=== PATIENT | female | born 1930 | race Caucasian/White ===

== ENCOUNTER 2017-11-06 17:50 | Emergency (ER) | payer MEDICARE, OTHER ==
--- NOTE | 2017-11-06 17:55 | ED Physician Documentation ---
General Adult - HISTORIAN Historian: other (EMS) - HPI Stated Complaint: fall Chief Complaint: General Adult Additional Information: Resident denisha Maldonado fell from her WC and hit the back of her head on the floor. No LOC. Daily aspirin. - PAST HX Past History: hypertension Other History: diabetes Type 2, other (demenia; chronic a fib) - SOCIAL HX Smoking History: non-smoker - FAMILY HX Family History: No (no significant HX) - REVIEWED ASSESSMENTS Nursing Assessment Reviewed: Yes Vitals Reviewed: Yes <RAHEEL RUVALCABA - Last Filed: 11/06/17 18:59> - ROS CONST: recent illness (UTI --COMPLETE EVALUATION FOR [facility]-NONE FOUND--PT HAD UTI BUT LAB REVEALS APPARENT COMPLETE RESOLUTION) - VITAL SIGNS Vital Signs: Vital Signs Temp Pulse Resp BP Pulse Ox 97.4 F L 92 H 16 145/78 92 11/06/17 17:50 11/06/17 17:50 11/06/17 17:50 11/06/17 17:50 11/06/17 17:50 <Alfredo Do - Last Filed: 11/06/17 20:48> - PAST HX Allergies/Adverse Reactions: Allergies Allergy/AdvReac Type Severity Reaction Status Date / Time amoxicillin Allergy Verified 11/06/17 18:02 ciprofloxacin Allergy Verified 11/06/17 18:02 codeine Allergy Verified 11/06/17 18:02 meperidine Allergy Verified 11/06/17 18:02 Sulfa (Sulfonamide Allergy Verified 11/06/17 18:02 Antibiotics) Home Medications: Ambulatory Orders Medication Instructions Recorded Ascorbic Acid [Vitamin C] 1 tab PO DAILY 11/06/17 Aspirin [Aspir-Low] 1 tab PO DAILY 11/06/17 Atorvastatin Calcium [Atorvastatin 1 tab PO DAILY 11/06/17 Calcium] Clonidine HCl [Clonidine HCl ER] 1 tab PO BID 11/06/17 Diltiazem HCl [Diltiazem ER] 1 tab PO DAILY 11/06/17 Docusate Sodium [Colace] 1 tab PO BID 11/06/17 QUEtiapine FUMARATE [Seroquel] 1 tab PO BID 11/06/17 traMADol HCL [Ultram] 1 tab PO PRN PRN 11/06/17 Progress - Progress Progress: Patient Study Name: [facility] Date: November 06, 2017 6:07:35 PM CDT Modality Type: CT\SR Gender: F Description: CT BRAIN W/O CONTRAST : [birth year] Institution: [facility] Physician: RAHEEL RUVALCABA - CT head without contrast HISTORY Fall, head injury. TECHNIQUE Images through the brain were obtained without contrast. FINDINGS No prior examination is available for comparison. There is no mass, midline shift, obstructive hydrocephalous or acute intracranial hemorrhage. The ventricles and cortical sulci are enlarged, consistent with atrophy. Lucency in the periventricular white matter indicates microvascular ischemic change. No extra-axial fluid collection is identified. Scalp hematoma is noted in the left posterior parietal region. IMPRESSION Chronic and age-related changes. No acute intracranial process. Electronically signed on November 06, 2017 6:41:29 PM CDT by: Gerard Billingsley to Dr. Do <RAHEEL RUVALCABA - Last Filed: 11/06/17 18:59> ED Results Lab/Radiology - Orders Orders: ED Orders Category Date Time Status Place IV Lock 1T Care 11/06/17 17:[address] BRAIN W/O CONTRAST Stat Exams 11/06/17 Ordered CBC/PLATELET/DIFF Routine Lab 11/06/17 Ordered CMP Routine Lab 11/06/17 Ordered PT-INR Routine Lab 11/06/17 Ordered URINALYSIS Routine Lab 11/06/17 Ordered <RAHEEL RUVALCABA - Last Filed: 11/06/17 18:59> - Lab Results Lab Results: Lab Results 11/06/17 11/06/17 11/06/17 19:30 17:50 17:50 WBC Pending RBC 4.37 M/ul M/ul (3.90-5.20) Hgb 14.1 g/dL g/dL (12.0-16.0) Hct 43.2 % % (34.5-46.5) MCV 99.0 fl fl (80.0-100.0) MCH 32.2 pg pg (28.0-34.0) MCHC 32.6 g/dL g/dL (30.0-36.0) RDW 13.9 % % (11.3-14.3) Plt Count 131 K/mm3 K/mm3 (130-400) PT 13.3 Seconds H Seconds (9.4-11.6) INR 1.27 H (0.9-1.2) Sodium 140 mmol/L mmol/L (136-145) Potassium 3.7 mmol/L mmol/L (3.5-5.1) Chloride 105 mmol/L mmol/L (98-107) Carbon Dioxide 28 mmol/L mmol/L (22-30) BUN 15 mg/dL mg/dL (7-17) Creatinine 0.60 mg/dL mg/dL (0.52-1.04) Estimated Creat Clear 49 Est GFR ( Amer) > 60 (60 - ) Est GFR (Non-Af Amer) > 60 (60 - ) Glucose 164 mg/dL H mg/dL (74-106) Calcium 10.1 mg/dL mg/dL (8.4-10.2) Total Bilirubin 0.5 mg/dL mg/dL (0.2-1.3) AST 41 U/L U/L (15-46) ALT 32 U/L U/L (13-69) Alkaline Phosphatase 66 U/L U/L (38-126) Total Protein 6.9 g/dL g/dL (6.3-8.2) Albumin 3.9 g/dL g/dL (3.5-5.0) - Orders Orders: ED Orders Category Date Time Status Place IV Lock 1T Care 11/06/17 17:[address] BRAIN W/O CONTRAST Stat Exams 11/06/17 Taken CBC/PLATELET/DIFF Routine Lab 11/06/17 17:50 Results CMP Routine Lab 11/06/17 17:50 Completed PT-INR Routine Lab 11/06/17 19:30 Completed URINALYSIS Routine Lab 11/06/17 Ordered <Alfredo Do - Last Filed: 11/06/17 20:48> General Adult Physical Exam - PHYSICAL EXAM GENERAL APPEARANCE: mild distress (restless) EENT: ENT inspection normal NECK: normal inspection, supple RESPIRATORY: chest non-tender, breath sounds normal CVS: heart sounds normal ABDOMEN: soft, normal bowel sounds, no distension, non-tender BACK: other (portions of back visualized and skin intact. she does not cooperate with exam and refuses to roll or tusit up) SKIN: warm/dry, normal color EXTREMITIES: normal range of motion, no evidence of injury NEURO: CN's nml as tested, motor nml, sensation nml (Hematoma left occipitoparietal area, 4 cm elevation, 6 cm in length, 2 cm wide, tender. Abrasions, but no lac.) <RAHEEL RUVALCABA - Last Filed: 11/06/17 18:59> Discharge <RAHEEL RUVALCABA - Last Filed: 11/06/17 18:59> Decision to Admit: NO Decision Time: 20:47 <Alfredo Do - Last Filed: 11/06/17 20:48> Clincal Impression: fall w/mild concussion, recenbt complete [facility] Referrals: Emery Roberts MD [Primary Care Provider] - 2 Days Condition: Good Disposition: 01 HOME, SELF-CARE
[2017-11-06 18:36] LABS: MEAN CORPUSCULAR HEMOGLOBIN 32.2 pg (28.0-34.0)
[2017-11-06 18:42] LABS: eGFR (African) > 60; eGFR (Non-African) > 60
[2017-11-06 21:13] VITALS: BP 186/98
[2017-11-07 06:04] LABS: APPEARANCE,URINE CLOUDY (CLEAR); COLOR,URINE YELLOW (YELLOW); OCCULT BLOOD,URINE TR (NEGATIVE); UROBILINOGEN URINE 0.2 Eu (0.2-1.0)
[2017-11-07 08:05] LABS: MONOCYTES % 6 % (0-11); SEGMENTED NEUTROPHILS % 67 % (39-79)
--- NOTE | 2017-11-07 10:02 | Diagnostic Imaging Report ---
RAHEEL RUVALCABA [facility] [address] [facility] [address] [place], [place]. [address] Report Submission Date: November 06, 2017 6:41:29 PM CDT Patient Study Name: [facility]DESTO [facility] Date: November 06, 2017 6:07:35 PM CDT Modality Type: CT\SR Gender: F Description: CT BRAIN W/O CONTRAST : [birth year] Institution: [facility] Physician: RAHEEL RUVALCABA CT head without contrast HISTORY Fall, head injury. TECHNIQUE Images through the brain were obtained without contrast. FINDINGS No prior examination is available for comparison. There is no mass, midline shift, obstructive hydrocephalous or acute intracranial hemorrhage. The ventricles and cortical sulci are enlarged, consistent with atrophy. Lucency in the periventricular white matter indicates microvascular ischemic change. No extra-axial fluid collection is identified. Scalp hematoma is noted in the left posterior parietal region. IMPRESSION Chronic and age-related changes. No acute intracranial process. Electronically signed on November 06, 2017 6:41:29 PM CDT by: Gerard MCBRIDE
== END 2017-11-06 21:10 | disposition home or self-care (01) ==
LOC: ED 17:50
DX: S06.0X0A Concussion without loss of consciousness, initial encounter (principal); W19.XXXA Unspecified fall, initial encounter; Y92.199 Unspecified place in other specified residential institution as the place of occurrence of the external cause; Y93.9 Activity, unspecified; Y99.9 Unspecified external cause status
CPT/HCPCS: 51701; 70450; 80053; 81002; 85025; 85610; 99284; S1016

== ENCOUNTER 2017-11-16 07:39 | Inpatient (IN) | payer MEDICARE, OTHER ==
[2017-11-16] MEDS ORDERED: 0.9 % SODIUM CHLORIDE 500 ML IV ONE (07:42)
[2017-11-16 08:12] LABS: BASOPHILS % 0.2 (0.0-1.5); EOSINOPHILS % 0.2 % (0.0-6.8); MEAN CORPUSCULAR HEMOGLOBIN 31.7 pg (28.0-34.0); MEAN CORPUSCULAR VOLUME 101.8 fl (80.0-100.0); MONOCYTES % 3.5 % (0.0-11.0); NEUTROPHILS # 8.7 # k/uL (1.4-7.7)
[2017-11-16 08:23] LABS: eGFR (African) 34; eGFR (Non-African) 28
--- NOTE | 2017-11-16 08:32 | Diagnostic Imaging Report ---
NONI KHANNA [facility] [address] [facility] [address] [address] Report Submission Date: Nov 16, 2017 8:29:34 AM CDT Patient Study Name: [facility]DESTO [facility]ITAL Date: Nov 16, 2017 8:06:42 AM CDT Modality Type: DX Gender: F Description: CHEST : [birth year] Institution: [facility] Physician: NONI KHANNA Chest, AP portable History: Dyspnea, shortness of breath Findings: No prior examination is available for comparison. Sternal wires indicate prior cardiac surgery. Mild left lower lobe infiltrate is present. There is no pneumothorax or pleural effusion. The heart is enlarged. Pulmonary vascularity is normal. There is calcification in the thoracic aorta. Impression: Cardiomegaly. Mild left lower lobe infiltrate. Aortic atherosclerosis. Electronically signed on Nov 16, 2017 8:29:34 AM CDT by: Gerard MCBRIDE
--- NOTE | 2017-11-16 08:40 | ED Physician Documentation ---
General Adult - HISTORIAN Historian: patient - HPI Stated Complaint: fever, tachycardia, dehydration Chief Complaint: General Adult Onset: days ago Timing: still present Severity: moderate Further Comments: yes (Pt is an 87 yo female who presents with tachycardia, recent dx pneunonia and UTI, who appears dehydrated. Pt's HR on presentation in 140's; Pt tachypneic with RR 38. Pt is hypertensive. She has not been getting her daily meds because she has appeared lethargic and not able to swallow well.) - ROS CONST: weakness CVS/RESP: shortness of breath GI/: none MS/SKIN/LYMPH: none NEURO/PSYCH: other (lethargic) - PAST HX Past History: other (afib, anxiety, demenita, DM, HTN) Allergies/Adverse Reactions: Allergies Allergy/AdvReac Type Severity Reaction Status Date / Time amoxicillin Allergy Verified 11/16/17 08:56 ciprofloxacin Allergy Verified 11/16/17 08:56 codeine Allergy Verified 11/16/17 08:56 meperidine Allergy Verified 11/16/17 08:56 Sulfa (Sulfonamide Allergy Verified 11/16/17 08:56 Antibiotics) Home Medications: Ambulatory Orders Medication Instructions Recorded Ascorbic Acid [Vitamin C] 1 tab PO DAILY 11/06/17 Aspirin [Aspir-Low] 1 tab PO DAILY 11/06/17 Atorvastatin Calcium [Atorvastatin 1 tab PO DAILY 11/06/17 Calcium] Clonidine HCl [Clonidine HCl ER] 1 tab PO BID 11/06/17 Diltiazem HCl [Diltiazem ER] 1 tab PO DAILY 11/06/17 Docusate Sodium [Colace] 1 tab PO BID 11/06/17 QUEtiapine FUMARATE [Seroquel] 1 tab PO BID 11/06/17 traMADol HCL [Ultram] 1 tab PO PRN PRN 11/06/17 Calcium Carbonate/Vitamin D3 1 tab PO DAILY 11/16/17 [Calcium 600 with Vit D Chew Tb] Cyanocobalamin (Vitamin B-12) 1 tab PO DAILY 11/16/17 [Vitamin B-12] Famotidine [Pepcid] 20 mg PO DAILY 11/16/17 LORazepam [Ativan] 0.5 mg PO TID 11/16/17 Pyridoxine HCl (Vitamin B6) 2 tab PO DAILY 11/16/17 [Vitamin B-6] Valsartan [Valsartan] 160 mg PO DAILY 11/16/17 - SOCIAL HX Smoking History: non-smoker - FAMILY HX Family History: No - VITAL SIGNS Vital Signs: Vital Signs Temp Pulse Resp BP Pulse Ox 186/98 11/06/17 21:10 - REVIEWED ASSESSMENTS Nursing Assessment Reviewed: Yes Vitals Reviewed: Yes Progress - Progress Progress: NS 500 cc IVF Pt tachypneic but SpO2 94 % 2 L NC Diltiazem 15 mg IV Ativan 0.5 mg IV Lasix 20 mg IV bp, hr, improved cxr: Cardiomegaly. Mild left lower lobe infiltrate. Aortic atherosclerosis. Pt has elevated Troponin 1.01; elevated BNP; elevated sodium; and is dehydrated Pt is DNR. D/w family possibility of sending pt to [place], but family does not want aggressive measures. Will continue Rocephin, add Azithromycin, continue gentle hydration. Diltiazem q 6 h prn HTN, tachycardia. May consider Lasix (which may improve hypernatremia ). Admit to [facility]. - EKG/XRAY/CT EKG: rhythm (sinus tachycardia, JY=317; LVH by voltage; non-specific ST & T wave changes.) ED Results Lab/Radiology - Lab Results Lab Results: Lab Results 11/16/17 11/16/17 11/16/17 08:00 08:00 08:00 WBC 9.94 K/ul K/ul (4.00-12.00) RBC 5.50 M/ul H M/ul (3.90-5.20) Hgb 17.4 g/dL H g/dL (12.0-16.0) Hct 55.9 % H % (34.5-46.5) MCV 101.8 fl H fl (80.0-100.0) MCH 31.7 pg pg (28.0-34.0) MCHC 31.2 g/dL g/dL (30.0-36.0) RDW 13.7 % % (11.3-14.3) Plt Count 235 K/mm3 K/mm3 (130-400) Neut % (Auto) 87.4 % H % (39.0-79.0) Lymph % (Auto) 6.5 % L % (16.0-50.0) [place] % (Auto) 3.5 % % (0.0-11.0) Eos % (Auto) 0.2 % % (0.0-6.8) Baso % (Auto) 0.2 (0.0-1.5) Neut # (Auto) 8.7 # k/uL H # k/uL (1.4-7.7) Lymph # (Auto) 0.7 # k/uL # k/uL (0.6-4.0) [place] # (Auto) 0.4 # k/uL # k/uL (0.0-0.9) Eos # (Auto) 0.0 # k/uL # k/uL (0.0-0.6) Baso # (Auto) 0.0 # k/uL # k/uL (0.0-0.5) Reactive Lymphs % 2.2 % % (0.0-5.0) Reactive Lymphs # 0.2 # k/uL # k/uL (0.0-0.8) Sodium 159 mmol/L H mmol/L (136-145) Potassium 4.3 mmol/L mmol/L (3.5-5.1) Chloride 119 mmol/L H mmol/L (98-107) Carbon Dioxide 20 mmol/L L mmol/L (22-30) BUN 60 mg/dL H mg/dL (7-17) Creatinine 1.80 mg/dL H mg/dL (0.52-1.04) Est GFR ( Amer) 34 L (60 - ) Est GFR (Non-Af Amer) 28 L (60 - ) Glucose 187 mg/dL H mg/dL (74-106) Calcium 11.3 mg/dL H mg/dL (8.4-10.2) Total Bilirubin 1.1 mg/dL mg/dL (0.2-1.3) AST 138 U/L H U/L (15-46) ALT 67 U/L U/L (13-69) Alkaline Phosphatase 116 U/L U/L (38-126) Creatine Kinase 100 U/L U/L (30-135) CK-MB (CK-2) 3.2 ng/mL ng/mL (0.0-5.6) Troponin I 1.01 ng/mL H ng/mL (0.03-0.06) NT-Pro-B Natriuret Pep > 253019.0 pg/mL H pg/mL (15.0-450.0) Total Protein 7.8 g/dL g/dL (6.3-8.2) Albumin 4.1 g/dL g/dL (3.5-5.0) - Orders Orders: ED Orders Category Date Time Status Continuous EKG monitoring Q30M Care 11/16/17 07:43 Active Continuous Pulse Oximetry Q30M Care 11/16/17 07:[address] IV Lock 1T Care 11/16/17 07:[address] IV Lock 1T Care 11/16/17 07:43 Active CHEST 1VIEW [RAD] Stat Exams 11/16/17 Completed BLOOD CULTURE Stat Lab 11/16/17 Ordered CBC/PLATELET/DIFF Routine Lab 11/16/17 08:00 Completed CKMB Stat Lab 11/16/17 08:00 Completed CMP Routine Lab 11/16/17 08:00 Completed CREATINE KINASE Routine Lab 11/16/17 08:00 Completed NT-proBNP Stat Lab 11/16/17 08:00 Completed TROPONIN I (cTnI) Stat Lab 11/16/17 08:00 Completed 0.9 % Sodium Chloride [Normal Saline] 500 ml Med 11/16/17 07:42 Active IV NOW Oxygen Daily Oxygen 11/16/17 07:45 Ordered EKG WITH COMPARISON Stat Ther 11/16/17 07:43 Ordered General Adult Physical Exam - PHYSICAL EXAM GENERAL APPEARANCE: moderate distress (thin) EENT: dry mucous membranes NECK: normal inspection, supple RESPIRATORY: breath sounds normal, other (tachypneic) CVS: tachycardia ABDOMEN: soft, no organomegaly, normal bowel sounds BACK: normal inspection, no CVA tenderness SKIN: warm/dry, normal color EXTREMITIES: non-tender, no edema NEURO: motor nml, sensation nml, other (dementia) Discharge Clincal Impression: SOB, HTN, elevated troponin, elevated BNP, hypernatremia, pneumonia, recent UTI Referrals: Emery Roberts MD [Primary Care Provider] - 2 Days Condition: Fair Disposition: ADMITTED INPATIENT Decision to Admit: [id number] Decision Time: 11:21
[2017-11-16] MEDS ORDERED: DILTIAZEM HCL 25 MG/ 5ML VIAL IVP ONE (09:06)
[2017-11-16] MEDS ORDERED: LORazepam 2 MG/ML VIAL IVP ONE (09:32)
[2017-11-16] MEDS ORDERED: Lidocaine 1% 5ml(IM or SUTURE)(PAIN CLINIC) IJ ONE (09:35)
[2017-11-16] MEDS ORDERED: FUROSEMIDE 20 MG/2 ML VIAL IVP ONE (10:51)
[2017-11-16] MEDS ORDERED: AZITHROMYCIN 500 MG in 0.9 % SODIUM CHLORIDE 250 ML IV SCH (11:18)
[2017-11-16] MEDS ORDERED: AZITHROMYCIN 500 MG VIAL IV ONE (12:26)
[2017-11-16] MEDS ORDERED: 0.9 % SODIUM CHLORIDE 250 ML IV ONE (12:27)
[2017-11-16] MEDS ORDERED: KETOROLAC TROMETHAMINE 30 MG/1ML VIAL ONE (12:36)
[2017-11-16] MEDS ORDERED: KETOROLAC TROMETHAMINE 30 MG/1ML VIAL IVP ONE (12:39)
[2017-11-16] MEDS ORDERED: DILTIAZEM HCL IV ONE (12:40)
[2017-11-16] MEDS ORDERED: SODIUM CHLORIDE 0.9% IV ONE (12:40)
[2017-11-16] MEDS ORDERED: LORazepam 2 MG/ML VIAL IVP SCH (13:00)
--- NOTE | 2017-11-16 14:00 | History and Physical Report ---
History of Present Illnes - History of Present Illness Reason for Visit: Pneumonia, dehydration, sepsis History of Present Illness: 87 year old female presented to the ER from [facility] this morning after family noticed the patient seemed lethargic and was not alert or responsive. She had been being treated for a UTI for the last several days and was diagnosed with pneumonia yesterday. She had been on Nitrofuritonin for the UTI and was started on Rocephin daily yesterday for the pneumonia at the half-way. half-way staff reported to ER provider that the patient had not been eating or drinking much at all the last several days and had not been taking her oral medications because she was not alert enough to swallow. Family had requested she be evaluated in the ER for possible IV hydration. Upon arrival in the ER she was found to have a HR in the 140s, respirations in the 40s, and an elevated BP. Her troponin was elevated and her BNP was too high to measure. Her sodium was very elevated. She was found to be extremely dehydrated with an serum creatinine of 1.8 and BUN of 60. Because the patient is not alert and oriented the treatment options were discussed with her next of kin. Transfer to [place] with discussed with next of kin and it was agreed that they did not want to pursue aggressive treatment for her condition. They elect to have her admitted here for IV antibiotics and IV fluids. The patient was then transferred to the floor. At the time of this interview her 1 Daughter , granddaughter, and son are present. Her 2 Daughters are her surrogate decision makers. They note that they do not want aggressive treatment of the patient's condition. They specifically state they do not wish to have mechanical or pharmaceutical intervention if the patient's heart is to stop and they do not wish to have a breathing tube placed should she stop breathing. They state their main concern is that she is comfortable. They do wish to proceed with antibiotic treatment of the pneumonia, and would like to continue IV hydration at this time though they state they are aware Bonnie Echols may not respond to these treatments and they understand her likely course is one of progressive deterioration. - Past Medical History Cardiac: AFIB [employer] MANAGER: Dementia Renal/: UTI (diagnosed approximately 1 week ago, treated wtih abx in [facility]) - Past Surgical History Past Surgical History: Other (Unknown ) - Past Social History Smoke: No Alcohol: None Lives: Jail ([facility]) - Health Maintenance Health Maintenance: Influenza Vaccine (Per family current for this influenza season) Pneumonia Vaccine: No Resuscitation Status: Resusciation Status Resuscitation Status Do Not Resuscitate - Unable to Obtain History Unable to Obtain: Yes (Patient is non responsive. History is obtained though family and [facility] staff) Review of Systems - Review of Systems Constitutional: Deferred Eyes: Deferred ENT: Deferred Respiratory: Deferred Cardiovascular: Deferred Gastrointestinal: Deferred Genitourinary: Deferred Musculoskeletal: Deferred Skin: Deferred Neurological: Deferred Other: ROS not obtained due to patient being non-responsive at time of interview. - Medications/Allergies Allergies/Adverse Reactions: Allergies Allergy/AdvReac Type Severity Reaction Status Date / Time amoxicillin Allergy Verified 11/16/17 08:56 ciprofloxacin Allergy Verified 11/16/17 08:56 codeine Allergy Verified 11/16/17 08:56 meperidine Allergy Verified 11/16/17 08:56 Sulfa (Sulfonamide Allergy Verified 11/16/17 08:56 Antibiotics) Home Medications: Home Medications Calcium Carbonate/Vitamin D3 [Calcium 600 with Vit D Chew Tb] 1 tab PO DAILY 08/31 Cyanocobalamin (Vitamin B-12) [Vitamin B-12] 1 tab PO DAILY 11/16/17 Famotidine [Pepcid] 20 mg PO DAILY 11/16/17 LORazepam [Ativan] 0.5 mg PO TID 11/16/17 Pyridoxine HCl (Vitamin B6) [Vitamin B-6] 2 tab PO DAILY 11/16/17 Valsartan [Valsartan] 160 mg PO DAILY 11/16/17 Current Inpatient Medications: Current Inpatient Medications Diltiazem HCl (Cardizem) 15 mg IVP Q6H PRN PRN Reason: DIRECTED BY 'S ORDER Azithromycin 500 mg/ Sodium (Chloride) 250 mls @ 125 mls/hr IV Q24H JOSÉ MIGUEL Stop: 11/26/17 11:17 Last Admin: 11/16/17 12:55 Dose: 125 mls/hr Ceftriaxone Sodium 1 gm/ (Sodium Chloride) 100 mls @ 200 mls/hr IV Q24H JOSÉ MIGUEL Stop: 11/22/17 23:59 Sodium Chloride (Normal Saline) 1,000 mls @ 100 mls/hr IV Q10H JOSÉ MIGUEL Diltiazem HCl 15 mg/ Sodium (Chloride) 103 mls @ 10 mls/hr IV NOW ONE Stop: 11/17/17 01:09 Last Admin: 11/16/17 13:05 Dose: Not Given Lorazepam (Ativan) 0.5 mg IVP Q8 JOSÉ MIGUEL Exam - Exam Vital Signs: Vital Signs (72 hours) 11/16/17 13:24 Pulse Rate [ 90 Left Pulse ox] Respiratory 38 H Rate Blood Pressure 150/99 [Right Arm] O2 Sat by Pulse 97 Oximetry General: Moderate distress, Other (Patient is not alert and only response is a grimice when she is moved or with verbal stimulation in conjuction with physical stimulation (patting shoulder). She does not open her eyes during the entire exam, and is unable to squeeze my hand or machine maintenance her legs on command. ), Thin HEENT: Edentulous. No: Atraumatic (Hematoma on the back of head - from fall at NH last week per family), Mouth Mucous membr. moist/[place] (Very dry mucosa, with some discoloration of the soft palate - issues with dentures per family) Neck: No: Lymphadenopathy Lungs: Rales (very mild at bases) Cardiovascular: No murmurs, Tachycardia. No: Atrial Fib Abdomen: Soft, No tenderness. No: No hepatospenomegaly, Distended, Rigid Integumentary: Normal, [place], Warm, Dry Extremities: No edema, No tenderness/swelling Neurological: Generalized Weakness Psych/Mental Status: No: Mental status NL, Intact Judgment - Laboratory Results Laboratory Results: Laboratory Results - last 24 hr 11/16/17 11/16/17 11/16/17 08:00 08:00 08:00 WBC 9.94 RBC 5.50 H Hgb 17.4 H Hct 55.9 H MCV 101.8 H MCH 31.7 MCHC 31.2 RDW 13.7 Plt Count 235 Neut % (Auto) 87.4 H Lymph % (Auto) 6.5 L [place] % (Auto) 3.5 Eos % (Auto) 0.2 Baso % (Auto) 0.2 Neut # (Auto) 8.7 H Lymph # (Auto) 0.7 [place] # (Auto) 0.4 Eos # (Auto) 0.0 Baso # (Auto) 0.0 Reactive Lymphs % 2.2 Reactive Lymphs # 0.2 Sodium 159 H Potassium 4.3 Chloride 119 H Carbon Dioxide 20 L BUN 60 H Creatinine 1.80 H Est GFR ( Amer) 34 L Est GFR (Non-Af Amer) 28 L Glucose 187 H Calcium 11.3 H Total Bilirubin 1.1 AST 138 H ALT 67 Alkaline Phosphatase 116 Creatine Kinase 100 CK-MB (CK-2) 3.2 Troponin I 1.01 H NT-Pro-B Natriuret Pep > 45767.0 H Total Protein 7.8 Albumin 4.1 11/16/17 11/16/17 14:45 14:45 WBC RBC Hgb Hct MCV MCH MCHC RDW Plt Count Neut % (Auto) Lymph % (Auto) [place] % (Auto) Eos % (Auto) Baso % (Auto) Neut # (Auto) Lymph # (Auto) [place] # (Auto) Eos # (Auto) Baso # (Auto) Reactive Lymphs % Reactive Lymphs # Sodium Potassium Chloride Carbon Dioxide BUN Creatinine Est GFR ( Amer) Est GFR (Non-Af Amer) Glucose Calcium Total Bilirubin AST ALT Alkaline Phosphatase Creatine Kinase 128 CK-MB (CK-2) 5.3 Troponin I 1.15 H NT-Pro-B Natriuret Pep Total Protein Albumin Assessment/Plan - Assessment/Plan (1) Pneumonia Status: Acute Current Visit: Yes Qualifiers: Laterality: left Lung location: lower lobe of lung Assessment: CXR does shoe mild left lower lobe pneumonia and though her WBC count was not elevated she did show signs of an early left shift. Plan: IV Rocephin and IV Azithromycin ordered. Continue supplemental O2 per NC. Will monitor patient and titrate O2 accordingly. (2) Sepsis Status: Acute Current Visit: Yes Assessment: With known infection in lungs and recent UTI for known sources of infection, tachypnea, tachycardia, and mental status changes patient meets criteria for sepsis. Plan: Blood cultures pending although patient has been on PO and IM antibiotics in half-way MANAGER OB so results may be skewed. IV antibiotics and IV fluids ordered. Continue to monitor vital signs. (3) Dehydration Status: Acute Current Visit: Yes Assessment: Patient was found to have a serum creatinine at 1.8 and BUN of 60 upon arrival. Hx of very limited oral intake for the last several days. Dry mucous membranes. Plan: IV fluids continued with close monitoring for signs of fluid overload with elevated BNP. (4) Elevated troponin Status: Acute Current Visit: Yes Assessment: Troponin upon arrival was 1.0, second troponin 4 hours later was 1.1. EKG shows nonspecific changes with out ST segment elevation. Plan: Family dose not wish to aggressively treat patients condition, thus serial troponins were cancelled. Next of kin deny transfer to [place] for further cardiac work up. They understand that her condition is putting stress on her heart and that it may ultimately fail, however they still do not wish to proceed with additional treatment at this time and opt for comfort measures in this case. VTE Assessment - RISK FACTOR SCORE VTE RISK FACTOR SCORES: AGE OVER 60 YEARS, ANTICIPATED BED CONFINEMENT OR IMMOBILIZATION > 24 HOURS, SEPSIS - RISK VTE HIGH RISK: SCORE OF 3-4 (RISK PROXIMAL DVT 4-8%) PROPHYLAXIS NEEDED
[2017-11-16] MEDS ORDERED: 0.9 % SODIUM CHLORIDE 1,000 ML IV ONE (15:03)
[2017-11-16 15:16] VITALS: BMI 15.3
[2017-11-16] MEDS: 0.9 % SODIUM CHLORIDE 1,000 ML IV SCH ×2 (15:21→21:23)
[2017-11-16] MEDS: ENOXAPARIN SODIUM 40 MG/0.4 ML DISP.SYRIN SQ SCH ×2 (18:29→20:35)
[2017-11-16] MEDS: LORazepam 2 MG/ML VIAL IVP SCH (18:33)
[2017-11-16] MEDS: DILTIAZEM HCL 25 MG/ 5ML VIAL IVP PRN (19:52)
[2017-11-17] MEDS ORDERED: 0.9 % SODIUM CHLORIDE 1,000 ML IV ONE (00:26)
[2017-11-17] MEDS: 0.9 % SODIUM CHLORIDE 1,000 ML IV SCH (00:47)
[2017-11-17] MEDS ORDERED: cefTRIAXone SODIUM 1 GM VIAL ONE (01:26)
[2017-11-17] MEDS: LORazepam 2 MG/ML VIAL IVP SCH (02:36)
[2017-11-17] MEDS: DILTIAZEM HCL 25 MG/ 5ML VIAL IVP PRN (02:42)
[2017-11-17] MEDS ORDERED: cefTRIAXone SODIUM 1 GM in 0.9 % SODIUM CHLORIDE 100 ML IV SCH (06:00)
[2017-11-17 06:11] LABS: APPEARANCE,URINE CLOUDY (CLEAR); COLOR,URINE YELLOW (YELLOW); OCCULT BLOOD,URINE NEGATIVE (NEGATIVE); UROBILINOGEN URINE 0.2 Eu (0.2-1.0)
[2017-11-17 06:44] LABS: BASOPHILS % 0.2 (0.0-1.5); EOSINOPHILS % 0.1 % (0.0-6.8); MEAN CORPUSCULAR VOLUME 100.9 fl (80.0-100.0); MONOCYTES % 2.9 % (0.0-11.0); NEUTROPHILS # 13.6 # k/uL (1.4-7.7)
[2017-11-17] MEDS ORDERED: ACETAMINOPHEN 500 MG TABLET PO PRN (08:05)
[2017-11-17] MEDS ORDERED: DEXTROSE 5 % IN WATER 1,000 ML IV SCH (08:30)
[2017-11-17 09:08] VITALS: BP 94/33
[2017-11-17] MEDS: ENOXAPARIN SODIUM 40 MG/0.4 ML DISP.SYRIN SQ SCH (09:42)
[2017-11-17 10:04] LABS: MEAN CORPUSCULAR HEMOGLOBIN 31.1 pg (28.0-34.0)
--- NOTE | 2017-11-18 18:11 | Discharge Summary ---
Discharge Summary - Discharge Sumary History of Present Illness: 87 year old female presented to the ER from [facility] this morning after family noticed the patient seemed lethargic and was not alert or responsive. She had been being treated for a UTI for the last several days and was diagnosed with pneumonia yesterday. She had been on Nitrofuritonin for the UTI and was started on Rocephin daily yesterday for the pneumonia at the senior living. senior living staff reported to ER provider that the patient had not been eating or drinking much at all the last several days and had not been taking her oral medications because she was not alert enough to swallow. Family had requested she be evaluated in the ER for possible IV hydration. Upon arrival in the ER she was found to have a HR in the 140s, respirations in the 40s, and an elevated BP. Her troponin was elevated and her BNP was too high to measure. Her sodium was very elevated. She was found to be extremely dehydrated with an serum creatinine of 1.8 and BUN of 60. Because the patient is not alert and oriented the treatment options were discussed with her next of kin. Transfer to [place] with discussed with next of kin and it was agreed that they did not want to pursue aggressive treatment for her condition. They elect to have her admitted here for IV antibiotics and IV fluids. The patient was then transferred to the floor. At the time of this interview her 1 Daughter , granddaughter, and son are present. Her 2 Daughters are her surrogate decision makers. They note that they do not want aggressive treatment of the patient's condition. They specifically state they do not wish to have mechanical or pharmaceutical intervention if the patient's heart is to stop and they do not wish to have a breathing tube placed should she stop breathing. They state their main concern is that she is comfortable. They do wish to proceed with antibiotic treatment of the pneumonia, and would like to continue IV hydration at this time though they state they are aware Bonnie Echols may not respond to these treatments and they understand her likely course is one of progressive deterioration. Condition at Discharge: Home Medications: Ambulatory Orders Medication Instructions Recorded Ascorbic Acid [Vitamin C] 1 tab PO DAILY 11/06/17 Aspirin [Aspir-Low] 1 tab PO DAILY 11/06/17 Atorvastatin Calcium [Atorvastatin 1 tab PO DAILY 11/06/17 Calcium] Clonidine HCl [Clonidine HCl ER] 1 tab PO BID 11/06/17 Diltiazem HCl [Diltiazem ER] 1 tab PO DAILY 11/06/17 Docusate Sodium [Colace] 1 tab PO BID 11/06/17 QUEtiapine FUMARATE [Seroquel] 1 tab PO BID 11/06/17 traMADol HCL [Ultram] 1 tab PO PRN PRN 11/06/17 Calcium Carbonate/Vitamin D3 1 tab PO DAILY 11/16/17 [Calcium 600 with Vit D Chew Tb] Cyanocobalamin (Vitamin B-12) 1 tab PO DAILY 11/16/17 [Vitamin B-12] Famotidine [Pepcid] 20 mg PO DAILY 11/16/17 LORazepam [Ativan] 0.5 mg PO TID 11/16/17 Pyridoxine HCl (Vitamin B6) 2 tab PO DAILY 11/16/17 [Vitamin B-6] Valsartan [Valsartan] 160 mg PO DAILY 11/16/17 Consultations this Visit: None Procedures this Visit: None Allergies/Adverse Reactions: Allergies Allergy/AdvReac Type Severity Reaction Status Date / Time amoxicillin Allergy Verified 11/16/17 08:56 ciprofloxacin Allergy Verified 11/16/17 08:56 codeine Allergy Verified 11/16/17 08:56 meperidine Allergy Verified 11/16/17 08:56 Sulfa (Sulfonamide Allergy Verified 11/16/17 08:56 Antibiotics) Discharge Summary: Patient was started on IV antibiotic of Rocephin and azithromycin. Iv fluids were started, initially NS then switch to D5W due to hypernatremia. Na was intinially 159 but increased to 164. WBC was initially 9.9 and increased to 15, 000. Lactate was elevated. CXR showed a LLL infiltrate. Patient was given some IV diltiazem in the Ed for tachycardia. Patient remained unresponsive. Vital signs deteriorated. Per family request no further intervention was done. Patient .
== END 2017-11-17 10:05 | disposition expired | DRG 871 ==
LOC: ED 07:39 → SOUTH 12:30
PROVIDERS: ADMIT Physician Assistant; ATTEND Physician Assistant
DX: A41.9 Sepsis, unspecified organism (principal); J18.9 Pneumonia, unspecified organism; E86.0 Dehydration
CPT/HCPCS: 36415; 51701; 71045; 80053; 81002; 82550; 82553; 83605; 83880; 84484; 85025; 87040; 93005; J0456; J0696; J1650; J1885; J1940; J2060; J3490; J7030; J7050; J7060; J7070; 96360; 96365; 96375; 99223; 99238; S1016